=== PATIENT | female | born 1980 | race Caucasian/White ===

== ENCOUNTER 2022-05-30 17:56 | Emergency (ER) | payer OTHER, SELFPAY ==
[2022-05-30 18:06] VITALS: BP 127/73; PULSE 67; RESP 20; TEMP 36.7; O2SAT 98
--- NOTE | 2022-05-30 18:09 | ED.GENADULT ---
HPI - General Adult General Chief complaint: Urogenital-Female Stated complaint: Urinary Problem Source: patient and RN notes reviewed History of Present Illness HPI narrative: 41 yo F presents to urgent care with complaints of right lower back that radiates to right flank and down right buttock to genitals. Pt states this has been getting worse over the last 2-3 days. Pt reports having hematuria today. Pt denies any dysuria. Denies any abdominal pain, fevers, chills, or vomiting. Pt has hx of kidney stones and had a CT obtained with contrast in Feb which showed a nonobstructing nephrolithiasis on the right side. Related Data Home Medications Medication Instructions Recorded Confirmed dronabinol 2.5 mg capsule 2.5 mg PO BID 05/30/22 05/30/22 Allergies Allergy/AdvReac Type Severity Reaction Status Date / Time No Known Allergies Allergy Verified 05/30/22 18:13 Review of Systems Review of Systems: Pertinent positives and pertinent negatives per HPI. PMFSH Comments At the time of my signature, I reviewed and agree with the nursing past medical, surgical, social, and family history. There is no relevant family history pertinent to the patient complaint. Exam Narrative: GENERAL: This is a well-nourished, well-developed patient,in moderate distress. HEAD: normocephalic, atraumatic. EYES: Sclera clear/white. Vision is grossly intact. EARS: External ears normal, auditory canals clear and without drainage. Hearing grossly intact. NOSE: External nose normal with no obvious nasal discharge, nares without redness, no rhinorrhea. THROAT: Mucous membranes moist, posterior pharynx clear. NECK: Neck supple, non-tender without lymphadenopathy, masses or thyromegaly. CARDIOVASCULAR: Regular rate RESPIRATORY: Clear to auscultation. Breath sounds equal bilaterally. No wheezes, rales, or rhonchi. GASTROINTESTINAL: Abdomen soft, non-tender, nondistended. Bowel sounds are active. No hepato-splenomegaly, or palpable masses. No guarding. SKIN: warm, intact with no suspicious lesions or rash, good texture and turgor. NEURO: awake, alert, and oriented to person, place and time. There were no obvious focal neurologic abnormalities. BACK: mildly tender to right CV region. Course Course Level of Care: Express Care Visit Vital Signs Vital signs: Vital Signs Temperature 98.1 F 05/30/22 18:06 Pulse Rate 67 05/30/22 18:06 Respiratory Rate 20 05/30/22 18:06 Blood Pressure 127/73 05/30/22 18:06 Pulse Oximetry 98 05/30/22 18:06 Oxygen Delivery Room Air 05/30/22 18:06 Temperature 98.1 F 05/30/22 18:06 Pulse Rate 67 05/30/22 18:06 Respiratory Rate 20 05/30/22 18:06 Blood Pressure 127/73 05/30/22 18:06 Pulse Oximetry 98 05/30/22 18:06 Oxygen Delivery Room Air 05/30/22 18:06 Reviewed Medical Decision Making MDM Narrative Medical decision making narrative: Discussed recommendation for pt to go to the ER for further evaluation of her pain and pt declined, stating she doesn't want to go at this time. Pt prescribed Flomax and analgesics and instructed her to go to the ER with any new or worsening symptoms. Pt also instructed to go to the ER if her symptoms were not improved within 24 hours. Pt agrees. Go to the ER with any new or worsening symptoms or if your symptoms do not improve in the next 24 hours. Differential Diagnosis Differential Diagnosis: UTI, nephrolithiasis, hematuria Vital Signs Vital Signs: Vital Signs Temperature 98.1 F 05/30/22 18:06 Pulse Rate 67 05/30/22 18:06 Respiratory Rate 20 05/30/22 18:06 Blood Pressure 127/73 05/30/22 18:06 Pulse Oximetry 98 05/30/22 18:06 Oxygen Delivery Room Air 05/30/22 18:06 Temperature 98.1 F 05/30/22 18:06 Pulse Rate 67 05/30/22 18:06 Respiratory Rate 20 05/30/22 18:06 Blood Pressure 127/73 05/30/22 18:06 Pulse Oximetry 98 05/30/22 18:06 Oxygen Delivery Room Air 05/30/22 18:06 Lab Data
[2022-05-30] MEDS: KETOROLAC 30 MG/ML VIAL (*BKC) IM (18:38)
== END 2022-05-30 18:56 | disposition home or self-care (01) ==
PROVIDERS: Emergency Provider Nurse Practitioner Family; PCP Internal Medicine
DX: R31.9 Hematuria, unspecified (principal); M54.50 Low back pain, unspecified; M79.7 Fibromyalgia; Z96.0 Presence of urogenital implants
CPT/HCPCS: 81003; 87086; 96372; 99213; G0463; J1885